=== PATIENT | female | born 1995 | race Two or more races ===

== ENCOUNTER 2016-05-06 03:02 | Inpatient (IN) | payer MEDICAID ==
[2016-05-06] MEDS ORDERED: OXYTOCIN IN LR 500 ML IV ONE ×2 (04:01→04:58)
[2016-05-06 04:06] VITALS: BMI 28.1
[2016-05-06] MEDS ORDERED: OXYTOCIN 10 UNITS/ML VIAL ONE (04:57)
[2016-05-06] MEDS ORDERED: MINERAL OIL 25 ML BOT ONE (04:57)
[2016-05-06] MEDS ORDERED: LIDOCAINE 1% (PRES FREE) 30 ML VIAL ONE (04:57)
[2016-05-06] MEDS ORDERED: IV START KIT ONE ×2 (04:57→05:20)
[2016-05-06] MEDS ORDERED: LACTATED RINGERS 1,000 ML ONE (04:57)
[2016-05-06] MEDS ORDERED: LIDOCAINE Viscous 2% 15 ML UDCUP ONE (04:58)
[2016-05-06] MEDS ORDERED: PUMP TUBING ONE (04:58)
[2016-05-06 05:54] LABS: HEMATOCRIT 36.6 % (37.0-47.0); HEMOGLOBIN 12.3 gm/l (12.0-16.0); MEAN CELL VOLUME 84.9 fl (81.0-99.0); MEAN CORPUSCULAR HEMOGLOBIN 28.5 pg (27.0-31.0); MEAN CORPUSCULAR HGB CONC 33.6 g/dl (33.0-37.0); RED CELL DISTRIBUTION WIDTH 13.5 % (11.5-14.5)
[2016-05-06] MEDS: LACTATED RINGERS 1,000 ML IV PRN ×2 (07:27→08:28)
[2016-05-06] MEDS ORDERED: EPIDURAL PUMP SET ONE (07:38)
[2016-05-06] MEDS ORDERED: FENTANYL/ROPIVACAINE EPIDURAL 250 ML EP ONE (07:38)
[2016-05-06] MEDS ORDERED: EPIDURAL PROCEDURE TRAY ONE (07:40)
[2016-05-06] MEDS: FENTANYL/ROPIVACAINE EPIDURAL 250 ML EP SCH (08:05)
[2016-05-06] MEDS ORDERED: DIPHENHYDRAMINE HCL 50 MG/1 ML VIAL IV PRN (08:11)
[2016-05-06] MEDS ORDERED: EPHEDRINE SULFATE 50 MG/ML 1ML VIAL IV PRN (08:11)
[2016-05-06] MEDS ORDERED: ONDANSETRON 4 MG/2ML 2 ML VIAL IV PRN (08:11)
[2016-05-06] MEDS ORDERED: NALOXONE HCL 0.4 MG/ML VIAL IV PRN (08:11)
[2016-05-06] MEDS ORDERED: SODIUM CHLORIDE 0.9% 500 ML IV PRN (08:11)
[2016-05-06] MEDS ORDERED: LACTATED RINGERS 500 ML IV PRN (08:11)
[2016-05-06] MEDS ORDERED: NALBUPHINE HCL 20 MG/ML AMP IV PRN (08:11)
--- NOTE | 2016-05-06 11:35 | PCMAN ---
OB Admission Note - History : 1 Term: 0 : 0 Abortions (S&E): 0 Livin EDC:: 05/06/16 Gestational Age (weeks): 40 Days (#/7): 0 Admit Cervical Dilation:: 3 Admit Cervical Effacement (%):: 80 Admit Station:: -2 Admit Presentaton:: vertex Membrane Status: Ruptured Rupture (Date): 05/06/16 Rupture (Time): 02:00 Membranes Comment:: clear Labor Onset (Date): 05/06/16 Contractions: Yes Contraction Frequency:: 1.5-3 Heart Rate:: 140 Status:: Category 1, moderate variability, accels present, no decels Summary of Course:: 20 yo at 40 wks, admitted for SROM at 0200 today. Uncomplicated . PMHx: neg PSHx: neg SOCHx: neg x 3 NKDA - Labs Blood Type: O (+) positive Hct/Hgb:: 37.8/12.2 Rubella Status: Immune GBS Status: Negative Abnormal Labs: None Other Labs:: Ab neg HIV NR HBSAg NR RPR NR GC/CT neg 1hr 114 - Review of Systems Denies CP, SOB, DINERO, no RUQ pain, reports good movement. - Physical Exam General: Afebrile, No Acute Distress Psych/Mental Status: Mood/Affect Appropriate Neurological: Normal Speech HEENT: Atraumatic, Mucous membr. moist/pink Lungs: Clear to Auscultation Bilaterally, Normal Air Movement Cardiovascular: Regular Rate and Rhythm, Normal S1, Normal S2 Skin: Normal Color, Warm, Dry - Problems (1) Active labor at term Status: Acute Code: [id number] Assessment/Plan: 20 yo at 40 wks, SROM, now in active labor, GBS neg - patient has epidural in place, comfortable and resting - per RN, possible direct OP position, will try position changes - expectant management
[2016-05-06] MEDS: LACTATED RINGERS 1,000 ML IV SCH ×6 (12:14→21:39)
--- NOTE | 2016-05-06 15:30 | PDOC36 ---
Provider Note Subject: MD Interval Note Note: Called to room for 2.5 minute decel down to 80. heart tones recovered well and FSE placed. SVE 5.5/80/-1. Position feels asynclitic. Oxygen mask placed on patient. FHT: 160, moderate variability, no accels, 2.5 min variable decel TOCO: Q 2.5 - 3 mins A/P: 20 yo at 40 wks, SROM, labor - will continue to monitor closely - recovered after decel, making cervical change
[2016-05-06] MEDS ORDERED: CALCIUM CARBONATE 750 MG TAB.CHEW PO PRN (21:04)
[2016-05-07] MEDS: LACTATED RINGERS 1,000 ML IV SCH ×3 (01:13→04:12)
[2016-05-07] MEDS: FENTANYL/ROPIVACAINE EPIDURAL 250 ML EP SCH ×2 (01:38→07:16)
[2016-05-07] MEDS ORDERED: MINERAL OIL 25 ML BOT TP ONE (04:11)
[2016-05-07] MEDS ORDERED: LANOLIN 50 APPLIC/7G TUBE TP PRN (04:39)
[2016-05-07] MEDS ORDERED: HYDROCODONE/ACETAMINOPHEN 5/325MG TABLET PO PRN (04:39)
[2016-05-07] MEDS ORDERED: BENZOCAINE/MENTHOL 60 APPLIC/BOT TP PRN (04:39)
--- NOTE | 2016-05-07 04:44 | PCMDEL ---
Delivery Note - Labor 1st stage (hr/min):: 20 hrs 2nd stage (hr/min):: 3 hrs 19 min 3rd stage (hr/min):: 4 min Total (hr/min):: 23 hrs 19 min Pushed (hr/min):: 3 hrs - Delivery Delivery (Date): 05/07/16 Delivery (Time): 04:19 Gender: Female Presentation: Cephalic Position: OA Umbilical Cord: 3 Vessel Delayed Cord Clamping:: < 1-2 min 1 Minute Total: 9 5 Minute Total: 9 Placenta:: 04:23 EBL:: 200 mL Perineum:: 1st degree perineal laceration Suture:: 3-0 Chromic Anesthesia/Meds:: epidural Length ROM:: 26 hrs 19 min Comments:: of NB male, apgars 9/9, vigorous infant handed to mom. Cord clamped and cut after > 1 min delay. Cord blood obtained. Placenta delivered and grossly intact. Pit IV used for active management of 3rd stage of labor. 1st degree perineal laceration repaired with 3-0 Chromic. QBL 200 mL. Patient remained afebrile during labor.
[2016-05-07] MEDS: IBUPROFEN 800 MG TABLET PO PRN ×2 (05:57→20:33)
[2016-05-07] MEDS ORDERED: LACTATED RINGERS 1,000 ML ONE (07:46)
[2016-05-08 06:27] LABS: HEMOGLOBIN 10.6 gm/l (12.0-16.0)
[2016-05-08] MEDS: FENTANYL/ROPIVACAINE EPIDURAL 250 ML EP SCH (07:09)
[2016-05-08] MEDS: IBUPROFEN 800 MG TABLET PO PRN (07:39)
[2016-05-08] MEDS ORDERED: HYDROCORTISONE 1% CREAM 20 APPLIC/30 G TUBE PR PRN (13:07)
[2016-05-08] MEDS ORDERED: DOCUSATE SODIUM 100 MG CAPSULE PO PRN (13:07)
--- NOTE | 2016-05-08 13:07 | PDOC44 ---
- Subjective Day: 1 Reports Flatus, Reports Pain Tolerable, Reports , Reports Lochia Moderate, Reports Other (c/o constipation and hemorrhoids), Denies Nausea, Denies Vomiting, Denies Fever - Objective Temp Pulse Resp BP Pulse Ox 97.9 F 81 18 118/61 05/08/16 07:42 05/08/16 07:42 05/08/16 07:42 05/08/16 07:42 Lab Results 05/08/16 05:30 Hgb 10.6 L Hct 33.0 L Current Medications Generic Name Dose Route Start Last Admin Trade Name Freq PRN Reason Stop Dose Admin Acetaminophen/Hydrocodone Bitart 1 - 2 tab 05/07/16 04:39 Hooks 5/325 PO Q4H PRN Pain (Moderate) Benzocaine/Menthol 1 applic 05/07/16 04:39 Dermoplast TP PRN PRN Patient Comfort Emollient Ointment 1 applic 05/07/16 04:39 Nko-Q-Dpbyev TP PRN PRN sore nipples Ropivacaine/Fentanyl/NS 250 mls @ 0 mls/hr 05/06/16 08:11 05/08/16 07:09 Fentanyl 2 Mcg/Ml + Ropivacaine 0.125% Ep Bag EP Not Given EPI JONATAN Protocol Per Protocol Ibuprofen 800 mg 05/07/16 04:39 05/08/16 07:39 Motrin PO 800 mg Q6H PRN Administration Pain (Mild) Sodium Chloride 10 ml 05/06/16 04:01 05/07/16 05:25 Normal Saline 10ml Flush IV 10 ml PRN PRN Administration IV Flush Sodium Chloride 10 ml 05/07/16 04:39 Normal Saline 10ml Flush IV PRN PRN IV Flush - Physical Exam General: Afebrile, No Acute Distress Psych/Mental Status: Mood/Affect Appropriate, Bonding Well Lungs: Clear to Auscultation Bilaterally Cardiovascular: Regular Rate and Rhythm, No Murmur Fundus: Firm, Midline, At Umbilicus Extremities: No Edema Skin: No Rash - Problems:Assessment/Plan (1) Hemorrhoids Status: Acute Assessment/Plan: tucks pads, ointment ordered. (2) Vaginal delivery Status: Acute Assessment/Plan: Doing well. Routine pp care. (3) Constipation Status: Acute Assessment/Plan: dietary changes, fluid discussed. colace. Disposition: Stable, Anticipate DC Home Tomorrow
[2016-05-09 08:14] VITALS: BP 126/85
--- NOTE | 2016-05-09 09:48 | PDOC39B ---
Hospital Course: ADMIT DATE: 05/06/16 DISCHARGE DATE: 05/09/16 ADMISSION DIAGNOSES: IUP at 40 weeks SROM PROCEDURES: HISTORY OF PRESENT ILLNESS: 20 year old G1 T0 L0 at 40 weeks 1 days presenting with SROM. HOSPITAL COURSE: The patient progressed on normal labor curve. Delivered via without complications. Her post recovery was unremarkable. By day of discharge the patient is ambulating, eating, voiding, and passing flatus without difficulty. Pain is controlled and lochia is appropriate. She is breast feeding and supplementing with pumped breast milk. Good bonding. Mood well. - Physical Exam Vital Signs: Temp Pulse Resp BP Pulse Ox 98.7 F 90 16 126/85 05/09/16 04:17 05/09/16 08:13 05/09/16 08:13 05/09/16 08:13 General: Afebrile, No Acute Distress Neurological: Alert, Oriented x 4 Lungs: Clear to Auscultation Bilaterally Cardiovascular: Regular Rate and Rhythm Fundus: Firm, Midline Extremities: Full ROM, No Edema Skin: Normal Color, Warm, Dry, Intact, No Rash - Discharge Diagnosis (1) Vaginal delivery Status: Acute Assessment/Plan: Doing well. Routine pp care. Met with . Good support. - Discharge Plan Condition: Good Disposition: Home Prescriptions: Docusate Sodium [COLACE 100 MG CAPSULE (SHF)] 100 mg PO DAILY PRN #60 capsule PRN Reason: Constipation Ibuprofen [IBUPROFEN 800 MG TABLET (SHF)] 800 mg PO Q6H PRN #60 tablet PRN Reason: Pain (Mild) Lanolin [LANOLIN 7 G TUBE (SHF)] 1 applic TP PRN PRN #10 tube PRN Reason: Sore Nipples Follow-Up: Concha Sehth PA [Primary Care Provider] - In 6 weeks
== END 2016-05-09 11:45 | disposition home or self-care (01) | DRG 775 ==
LOC: FBCOUT 03:02 → FBC 03:02 → FBCOUT 04:00
PROVIDERS: ADMIT Family Medicine; ATTEND Family Medicine
PROC: 4A0H7CZ Measurement of Products of Conception, Cardiac Rate, Via Natural or Artificial Opening (ICD-10-PCS; 2016-05-06)
PROC: 00HU33Z Insertion of Infusion Device into Spinal Canal, Percutaneous Approach (ICD-10-PCS; 2016-05-06)
PROC: 10E0XZZ Delivery of Products of Conception, External Approach (ICD-10-PCS; principal; 2016-05-07)
PROC: 0HQ9XZZ Repair Perineum Skin, External Approach (ICD-10-PCS; 2016-05-07)
DX: O32.8XX0 Maternal care for other malpresentation of fetus, not applicable or unspecified (principal); O87.2 Hemorrhoids in the puerperium; O76 Abnormality in fetal heart rate and rhythm complicating labor and delivery; O70.0 First degree perineal laceration during delivery; K59.00 Constipation, unspecified; Z3A.40 40 weeks gestation of pregnancy; Z37.0 Single live birth

== ENCOUNTER 2016-05-12 11:09 | Outpatient (CLI) | payer MEDICAID | END 2016-05-12 11:10 | disposition home or self-care (01) | LOC: BABIESSH 11:09 | PROVIDERS: ATTEND Family Medicine | DX: Z39.1 Encounter for care and examination of lactating mother (principal) ==